=== PATIENT | male | born 1980 | race African-American/Black ===

== ENCOUNTER 2018-08-31 10:28 | Emergency (ER) | payer SELFPAY ==
[~2018-08-31] VITALS: Ht 182.9 cm; Wt 71.0 kg
[2018-08-31] MEDS ORDERED: ONDANSETRON HCL 4MG/2ML INJ IV STA (10:49)
[2018-08-31] MEDS ORDERED: ACETAMINOPHEN 325MG TABLET PO STA (10:49)
[2018-08-31] MEDS ORDERED: KETOROLAC 30MG/ML VIAL IV STA (10:49)
[2018-08-31] MEDS ORDERED: SODIUM CHLORIDE 0.9% 1,000 ML IV ONE (10:49)
[2018-08-31 11:24] LABS: CLARITY URINE CLEAR (CLEAR); COLOR URINE YELLOW (YELLOW); KETONES URINE 2+ (NEGATIVE); LEUKOCYTE ESTERASE URINE NEGATIVE (NEGATIVE); NITRITE URINE NEGATIVE (NEGATIVE); OCCULT BLOOD URINE NEGATIVE (NEGATIVE); PROTEIN URINE NEGATIVE (NEGATIVE); SPECIFIC GRAVITY URINE 1.016 (1.005-1.030)
[2018-08-31] MEDS ORDERED: ONDANSETRON HCL 4MG TABLET PO ONE (12:45)
[2018-08-31 12:55] VITALS: BP 114/65
== END 2018-08-31 12:55 | disposition home or self-care (01) ==
LOC: ER 12:10
DX: B34.9 Viral infection, unspecified (principal); F12.10 Cannabis abuse, uncomplicated
CPT/HCPCS: 71045; 81003; 87804; 96361; 96374; 96375; 99284; J1885; J2405; J7030; Q0162; Z7610